=== PATIENT | female | born 1995 | race Caucasian/White ===

== ENCOUNTER 2017-08-18 10:39 | Emergency (ER) | payer BC ==
[2017-08-18 11:12] VITALS: BP 122/67
--- NOTE | 2017-08-18 11:50 | UC ---
Throat Pain/Nasal Lul HPI - HPI Summary HPI Summary: [address], fever, white spots in throat. No n/v/d No difficulty breathing . Concern for strep - History of Current Complaint Chief Complaint: UCRespiratory Stated Complaint: SORE THROAT,STOMACH ACHE Time Seen by Provider: 08/18/17 11:18 Hx Obtained From: Patient Hx Last Menstrual Period: 07/28/17 ?: No Onset/Duration: Sudden Onset Severity: Moderate - Allergies/Home Medications Allergies/Adverse Reactions: Allergies Allergy/AdvReac Type Severity Reaction Status Date / Time Sulfamethoxazole Allergy Severe Rash Unverified 08/18/17 11:05 w/Trimethoprim [From Bactrim] Home Medications: Home Medications Ibuprofen TAB* [Advil TAB*] 600 mg PO Q6H PRN 08/18/17 [History Confirmed ] PMH/Surg Hx/FS Hx/Imm Hx Previously Healthy: Yes Cancer History: Other - non hodgkins at age 11 Other Cancer History: see above - Surgical History Surgical History: Yes Surgery Procedure, Year, and Place: 2005- open bone biopsy right hip, kidney biopsy, port placed. 2006- appendectomy, lumbar punctures. 2008-[place] removed - Family History Known Family History: Negative: Cardiac Disease - Social History Occupation: Student Lives: With Family Alcohol Use: Occasionally Substance Use Type: None Smoking Status (MU): Never Smoked Tobacco - Immunization History Most Recent Influenza Vaccination: FALL 2016 Review of Systems Constitutional: Fatigue ENT: Sore Throat Is Patient Immunocompromised?: No All Other Systems Reviewed And Are Negative: Yes Physical Exam Triage Information Reviewed: Yes Appearance: Well-Appearing, No Pain Distress, Well-Nourished Vital Signs: Initial Vital Signs Temp 98.6 F 08/18/17 11:07 Pulse 87 08/18/17 11:07 Resp 18 08/18/17 11:07 BP 122/67 08/18/17 11:07 Pulse Ox 100 08/18/17 11:07 Vital Signs Reviewed: Yes Eye Exam: Normal ENT: Positive: Pharyngeal erythema, Tonsillar swelling, Tonsillar exudate Dental Exam: Normal Neck exam: Normal Respiratory Exam: Normal Cardiovascular Exam: Normal Neurological Exam: Normal Psychological Exam: Normal Skin Exam: Normal Throat Pain/Nasal Course/Dx - Differential Dx/Diagnosis Differential Diagnosis/HQI/PQRI: Pharyngitis, Sinusitis, Tonsillitis, URI Provider Diagnoses: Strep throat Discharge - Discharge Plan Condition: Good Disposition: HOME Prescriptions: Amoxicillin PO (*) [Amoxicillin 875 MG (*)] 875 mg PO BID #20 tab Patient Education Materials: Strep Throat (ED) Referrals: No Primary Care Phys,NOPCP [Primary Care Provider] - If Needed
== END 2017-08-18 12:02 | disposition home or self-care (01) ==
LOC: UCCORT 10:39
DX: J02.0 Streptococcal pharyngitis (principal); Z72.89 Other problems related to lifestyle
CPT/HCPCS: 87651; 99212; G0463